=== PATIENT | male | born 1935 | race Caucasian/White ===

== ENCOUNTER 2023-06-12 09:03 | Outpatient (CLI) | payer MEDICARE, SELFPAY | END 2023-06-12 09:04 | disposition home or self-care (01) | LOC: LKVREF 09:05 | PROVIDERS: PCP Family Medicine; Visit Provider Family Medicine | DX: E11.9 Type 2 diabetes mellitus without complications (principal); R97.20 Elevated prostate specific antigen [PSA]; I10 Essential (primary) hypertension | CPT/HCPCS: 84153; 84154 ==

== ENCOUNTER 2023-12-11 10:28 | Outpatient (CLI) | payer MEDICARE, SELFPAY | END 2023-12-11 10:29 | disposition home or self-care (01) | LOC: NFLDREF 12-13 07:52 | PROVIDERS: PCP Family Medicine; Referring Provider Family Medicine; Visit Provider Family Medicine | DX: E11.9 Type 2 diabetes mellitus without complications (principal); E78.00 Pure hypercholesterolemia, unspecified; I10 Essential (primary) hypertension; N18.30 Chronic kidney disease, stage 3 unspecified; R97.20 Elevated prostate specific antigen [PSA]; Z12.5 Encounter for screening for malignant neoplasm of prostate | CPT/HCPCS: 80053; 80061; 82043; 82570; G0103 ==

== ENCOUNTER 2024-05-31 08:42 | Outpatient (CLI) | payer MEDICARE, SELFPAY ==
--- NOTE | 2024-05-31 09:15 | CRLHL7_ITS ---
For Patients: As a result of the Century Cures Act, medical imaging exams and procedure reports are released immediately into your electronic medical record. You may view this report before your referring provider. If you have questions, please contact your health care provider. Technique: Single contrast esophagram performed. Fluoroscopy time 38 seconds. Indication: Dysphagia Comparison: None. Findings: Aspiration occurred with thin barium extending into the trachea and right mainstem bronchus. Cough reflex is present. There is no esophageal obstruction or large hiatal hernia. Examination was terminated after the aspiration event. Impression: Moderate volume of spontaneous aspiration with associated cough reflex. Dictated by Arslan Diamond MD @ 05/31/2024 11:13:54 AM (Electronically Signed)
== END 2024-05-31 08:43 | disposition home or self-care (01) ==
LOC: RAD 08:42
PROVIDERS: PCP Family Medicine; Visit Provider Otolaryngology
DX: R13.10 Dysphagia, unspecified (principal); J38.01 Paralysis of vocal cords and larynx, unilateral
CPT/HCPCS: 74221

== ENCOUNTER 2024-07-22 13:55 | Outpatient (CLI) | payer MEDICARE, SELFPAY | END 2024-07-22 13:56 | disposition home or self-care (01) | PROVIDERS: PCP Family Medicine; Visit Provider Family Medicine | DX: R63.4 Abnormal weight loss (principal); I48.91 Unspecified atrial fibrillation; I10 Essential (primary) hypertension; E78.00 Pure hypercholesterolemia, unspecified; N18.30 Chronic kidney disease, stage 3 unspecified; E87.1 Hypo-osmolality and hyponatremia; E83.42 Hypomagnesemia; E87.6 Hypokalemia | CPT/HCPCS: 80048; 83735; 84100; 84443 ==

== ENCOUNTER 2024-07-29 13:38 | Outpatient (CLI) | payer MEDICARE, SELFPAY ==
[2024-07-29] MEDS: PERFLUTREN LIPID MICROSPHERES 2 ML VIAL IVP (14:51)
== END 2024-07-29 13:39 | disposition home or self-care (01) ==
LOC: RAD 13:40
PROVIDERS: PCP Family Medicine; Visit Provider Family Medicine
DX: I48.91 Unspecified atrial fibrillation (principal); I51.7 Cardiomegaly; I34.0 Nonrheumatic mitral (valve) insufficiency; I07.1 Rheumatic tricuspid insufficiency
CPT/HCPCS: 93306; Q9957

== ENCOUNTER 2024-07-30 09:40 | Outpatient (RCR) | payer MEDICARE, SELFPAY | END 2024-08-09 23:59 | disposition home or self-care (01) | LOC: CCIC 09:40 | PROVIDERS: PCP Family Medicine; Visit Provider Internal Medicine Hematology & Oncology | DX: C76.0 Malignant neoplasm of head, face and neck (principal); R62.7 Adult failure to thrive | CPT/HCPCS: 99202; 99204 ==